=== PATIENT | female | born 1960 | race Caucasian/White ===

== ENCOUNTER 2018-01-14 18:06 | Emergency (ER) | payer OTHER ==
[2018-01-14 18:13] VITALS: BP 137/84
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
== END 2018-01-14 19:07 | disposition home or self-care (01) ==
LOC: ER 18:06
DX: S20.01XA Contusion of right breast, initial encounter (principal); M79.1 Myalgia; R10.9 Unspecified abdominal pain; R07.9 Chest pain, unspecified; V49.40XA Driver injured in collision with unspecified motor vehicles in traffic accident, initial encounter
CPT/HCPCS: 99282